=== PATIENT | male | born 1970 | race Asian ===

== ENCOUNTER 2020-05-05 10:49 | Emergency (ER) | payer OTHER ==
[~2020-05-05] VITALS: Ht 165.1 cm; Wt 74.8 kg
[2020-05-05 11:05] VITALS: Ht 165.1 cm; Wt 74.8 kg
[2020-05-05 11:46] LABS: BASOPHIL % 0.4 % (0-2); PLATELET COUNT 272 x10^3mcL (130-400); RED CELL DISTRIBUTION WIDTH 13.8 % (11.5-14.5)
[2020-05-05 12:12] LABS: CALCIUM 9.3 mg/dL (8.5-10.1); CARBON DIOXIDE 29.9 mmol/L (21-32); CHLORIDE SERUM 106 mmol/L (98-107); CREATININE SERUM 1.1 mg/dL (0.7-1.3); GFR1 > 60 mL/min; GLUCOSE SERUM 115 mg/dL (74-106); POTASSIUM SERUM 3.4 mmol/L (3.5-5.1); SODIUM SERUM 141 mmol/L (136-145)
[2020-05-05 12:13] LABS: LIPASE 159 IU/L (73-393)
[2020-05-05 12:42] VITALS: BP 112/77
== END 2020-05-05 12:42 | disposition short-term general hospital (02) ==
LOC: ED 10:49
PROVIDERS: Emergency Medicine
DX: I21.3 ST elevation (STEMI) myocardial infarction of unspecified site (principal)
CPT/HCPCS: 83880; Q0092